=== PATIENT | male | born 1960 | race Caucasian/White ===

== ENCOUNTER 2022-01-31 17:29 | Emergency (ER) | payer OTHER ==
[~2022-01-31] VITALS: Ht 175.2 cm; Wt 127.0 kg
[2022-01-31] MEDS ORDERED: OMEPRAZOLE MAGN20 MG PO (18:51)
[2022-01-31] MEDS ORDERED: TAMSULOSIN HCL0.4 MG PO (18:51)
[2022-01-31] MEDS ORDERED: LOSARTAN POTAS100 M1 PO (18:51)
[2022-01-31] MEDS ORDERED: METFORMIN HYDR500 MG PO (18:51)
[2022-01-31] MEDS ORDERED: ALLOPURINOL100 MG PO (18:52)
[2022-01-31] MEDS ORDERED: ROSUVASTATIN CA10 MG PO (18:53)
[2022-01-31] MEDS ORDERED: XARE20MG PO ×2 (19:08→19:11)
[2022-01-31] MEDS ORDERED: XARE15TA PO (19:08)
[2022-01-31] MEDS ORDERED: XARELTO15 M1 PO (19:11)
== END 2022-01-31 19:30 | disposition home or self-care (01) ==
LOC: ED 17:29
DX: I82.412 Acute embolism and thrombosis of left femoral vein (principal); I82.432 Acute embolism and thrombosis of left popliteal vein; I82.442 Acute embolism and thrombosis of left tibial vein; I82.452 Acute embolism and thrombosis of left peroneal vein; Z79.899 Other long term (current) drug therapy

== ENCOUNTER → 2022-01-31 | Outpatient (CLI) | payer OTHER ==
[~2022-01-31] MED LIST: ALLOPURINOL100 MG PO; LOSARTAN POTAS100 M1 PO; METFORMIN HYDR500 MG PO; OMEPRAZOLE MAGN20 MG PO; ROSUVASTATIN CA10 MG PO; TAMSULOSIN HCL0.4 MG PO; XARE15TA PO; XARE20MG PO; XARELTO15 M1 PO
== END | disposition home or self-care (01) ==
LOC: US 15:30
PROVIDERS: ATTEND Nurse Practitioner Family
DX: I82.412 Acute embolism and thrombosis of left femoral vein (principal); I82.890 Acute embolism and thrombosis of other specified veins; I82.4Z2 Acute embolism and thrombosis of unspecified deep veins of left distal lower extremity; I82.812 Embolism and thrombosis of superficial veins of left lower extremity; R60.0 Localized edema

== ENCOUNTER → 2022-03-21 | Outpatient (CLI) | payer OTHER | END | disposition home or self-care (01) | LOC: RESCLI 16:33 | PROVIDERS: ATTEND Internal Medicine Nephrology | DX: I82.492 Acute embolism and thrombosis of other specified deep vein of left lower extremity (principal); Z79.899 Other long term (current) drug therapy ==

== ENCOUNTER → 2023-11-18 | Outpatient (CLI) | payer OTHER | END | disposition home or self-care (01) | LOC: RESCLI 16:26 | PROVIDERS: ATTEND Internal Medicine | DX: E11.9 Type 2 diabetes mellitus without complications (principal); J30.9 Allergic rhinitis, unspecified; K21.9 Gastro-esophageal reflux disease without esophagitis; I10 Essential (primary) hypertension; N40.0 Benign prostatic hyperplasia without lower urinary tract symptoms; N52.9 Male erectile dysfunction, unspecified; I82.409 Acute embolism and thrombosis of unspecified deep veins of unspecified lower extremity; G47.33 Obstructive sleep apnea (adult) (pediatric); E63.9 Nutritional deficiency, unspecified; M10.9 Gout, unspecified; M19.90 Unspecified osteoarthritis, unspecified site; E78.2 Mixed hyperlipidemia; Z79.01 Long term (current) use of anticoagulants; Z79.84 Long term (current) use of oral hypoglycemic drugs; Z79.899 Other long term (current) drug therapy; Z98.890 Other specified postprocedural states; Z82.49 Family history of ischemic heart disease and other diseases of the circulatory system; Z91.09 Other allergy status, other than to drugs and biological substances ==

== ENCOUNTER → 2025-01-19 | Outpatient (CLI) | payer MEDICARE | END | disposition home or self-care (01) | LOC: RESCLI 01:06 | PROVIDERS: ATTEND Student in an Organized Health Care Education/Training Program | DX: G47.33 Obstructive sleep apnea (adult) (pediatric) (principal); E63.9 Nutritional deficiency, unspecified; J30.9 Allergic rhinitis, unspecified; I10 Essential (primary) hypertension; N52.9 Male erectile dysfunction, unspecified; K21.9 Gastro-esophageal reflux disease without esophagitis; N40.0 Benign prostatic hyperplasia without lower urinary tract symptoms; M10.9 Gout, unspecified; E11.9 Type 2 diabetes mellitus without complications; Z86.718 Personal history of other venous thrombosis and embolism; Z79.899 Other long term (current) drug therapy; Z98.890 Other specified postprocedural states ==